=== PATIENT | male | born 1985 | race American Indian/Alaskan Native ===

== ENCOUNTER 2017-10-02 14:06 | Outpatient (CLI) | payer OTHER ==
[2017-10-02 14:42] LABS: Alanine Aminotransferase 26 units/L (7-56); Albumin 4.3 g/dL (3.9-5)
[2017-10-02 14:49] LABS: Bilirubin,Direct < 0.2 mg/dL (0-0.2)
== END 2017-10-02 14:07 | disposition home or self-care (01) ==
LOC: LAB 14:06
PROVIDERS: ATTEND Internal Medicine
DX: N18.9 Chronic kidney disease, unspecified (principal)
CPT/HCPCS: 36415; 80074

== ENCOUNTER 2019-05-29 07:15 | Emergency (ER) | payer OTHER ==
[2019-05-29 07:21] VITALS: BP 129/81
--- NOTE | 2019-05-29 08:05 | Emergency Department Report ---
- General Chief Complaint: Upper Respiratory Infection Stated Complaint: FLU SX Time Seen by Provider: 05/29/19 07:50 Source: patient Mode of arrival: Ambulatory Limitations: No Limitations - History of Present Illness Initial Comments: 34-year-old male with no significant past medical history presents to the ER today complaining of cold symptoms. Patient states any symptoms has been going on for 2 days. He reports rhinorrhea, nasal congestion, sore throat generalized muscle aches, chills, and a nonproductive cough and chest congestion. Patient reports exposure to sick contact (his fiance). He states that he has been taking [id number] TheraFlu, NyQuil and tylenol extra strength without much relief of symptoms. He denies fever, GI or symptoms or any other symptoms at this time. MD Complaint: cough, sore throat, rhinorrhea, nasal congestion, sinus pain -: days(s) (2) - Related Data Previous Rx's Medication Instructions Recorded Last Taken Type ALBUTEROL Inhaler (OR & NICU) 2 puff IH QID PRN #8.5 gram 05/29/19 Unknown Rx [ProAir HFA Inhaler] Benzonatate [Tessalon Perles] 100 mg PO Q8HR PRN #30 capsule 05/29/19 Unknown Rx Fexofenadine HCl [Dafne Allergy] 180 mg PO DAILY #30 tablet 05/29/19 Unknown Rx predniSONE [Deltasone] 50 mg PO QDAY #5 tab 05/29/19 Unknown Rx Allergies Allergy/AdvReac Type Severity Reaction Status Date / Time No Known Allergies Allergy Unverified 05/29/19 07:17 ED Review of Systems ROS: Stated complaint: FLU SX Other details as noted in HPI Comment: All other systems reviewed and negative ENT: throat pain, congestion, other (rhino) Respiratory: cough. denies: shortness of breath, SOB with exertion, SOB at rest, stridor, wheezing Cardiovascular: denies: chest pain Gastrointestinal: denies: abdominal pain, nausea, vomiting, diarrhea Genitourinary: denies: dysuria, frequency Musculoskeletal: myalgia, other (posterior neck pain) Neurological: denies: headache, vertigo ED Past Medical Hx - Past Medical History Previous Medical History?: No - Surgical History Past Surgical History?: No - Social History Smoking Status: Never Smoker - Medications Home Medications: Home Medications Medication Instructions Recorded Confirmed Last Taken Type ALBUTEROL Inhaler (OR & NICU) 2 puff IH QID PRN #8.5 gram 05/29/19 Unknown Rx [ProAir HFA Inhaler] Benzonatate [Tessalon Perles] 100 mg PO Q8HR PRN #30 capsule 05/29/19 Unknown Rx Fexofenadine HCl [Dafne Allergy] 180 mg PO DAILY #30 tablet 05/29/19 Unknown Rx predniSONE [Deltasone] 50 mg PO QDAY #5 tab 05/29/19 Unknown Rx ED Physical Exam - General Limitations: No Limitations General appearance: alert, in no apparent distress - Head Head exam: Present: atraumatic, normocephalic, normal inspection - Eye Eye exam: Present: normal appearance, PERRL, EOMI - ENT ENT exam: Present: mucous membranes moist, other (+sinus tenderness maxillary ) - Expanded ENT Exam Expanded TM/Canal exam: Effusion: Right TM, Left TM Mouth exam: Present: normal external inspection Throat exam: Positive: tonsillar erythema, tonsillomegaly (mild). Negative: tonsillar exudate - Neck Neck exam: Present: full ROM. Absent: normal inspection, tenderness, meningismus - Respiratory Respiratory exam: Present: wheezes (right upper lung field, mild) - Cardiovascular Cardiovascular Exam: Present: regular rate, normal rhythm, normal heart sounds - GI/Abdominal GI/Abdominal exam: Present: soft. Absent: tenderness - Neurological Exam Neurological exam: Present: alert, oriented X3, CN II-XII intact - Skin Skin exam: Present: intact ED Course Vital Signs 05/29/19 07:19 Temperature 98.7 F Pulse Rate 100 H Respiratory 18 Rate Blood Pressure 129/81 O2 Sat by Pulse 98 Oximetry ED Medical Decision Making - Radiology Data Radiology results: report reviewed - Medical Decision Making Patient is resting comfortably, he is alert and in no distress. He has normal mental status and is neurologically intact. He is not toxic or ill appearing. No significant signs of dehydration. There is no respiratory distress or signs of system toxicity. The history and exam and current condition do not demonstrate an infectious process such as meningitis, severe pneumonia, retropharyngeal abscess, epiglottis, sepsis or any other serious bacterial infection requiring further testing, treatment, consultation, or admission at this time. The VS are stable and the patient is stable and appropriate for discharge. Critical care attestation.: If time is entered above; I have spent that time in minutes in the direct care of this critically ill patient, excluding procedure time. ED Disposition Clinical Impression: Upper respiratory infection, Bronchitis Disposition: TO HOME OR SELFCARE Is pt being admited?: No Does the pt Need Aspirin: No Condition: Stable Instructions: Upper Respiratory Infection (ED), Acute Bronchitis (ED), Chronic Bronchitis (ED) Prescriptions: Fexofenadine HCl [Dafne Allergy] 180 mg PO DAILY #30 tablet predniSONE [Deltasone] 50 mg PO QDAY #5 tab ALBUTEROL Inhaler (OR & NICU) [ProAir HFA Inhaler] 2 puff IH QID PRN #8.5 gram PRN Reason: Wheezing Benzonatate [Tessalon Perles] 100 mg PO Q8HR PRN #30 capsule PRN Reason: Cough [facility]errals: [facility] [Primary Care Provider] - 3-5 Days ANGEAL HUDSON MD [Staff Physician] - 3-5 Days Forms: Work/School Release Form(ED) Time of Disposition: 09:38
--- NOTE | 2019-05-29 09:03 | XRay Report ---
CHEST 2 VIEWS INDICATION / CLINICAL INFORMATION: Cough/wheezing. COMPARISON: None available. FINDINGS: SUPPORT DEVICES: None. HEART / MEDIASTINUM: No significant abnormality. LUNGS / PLEURA: No significant pulmonary or pleural abnormality. No pneumothorax. ADDITIONAL FINDINGS: No significant additional findings. IMPRESSION: No significant abnormality Signer Name: Jonh Reyna MD FACR Signed: 05/29/2019 8:59 AM Workstation Name: [id number]
== END 2019-05-29 10:03 | disposition home or self-care (01) ==
LOC: ED 07:15
DX: J40 Bronchitis, not specified as acute or chronic (principal); J06.9 Acute upper respiratory infection, unspecified; Z79.899 Other long term (current) drug therapy
CPT/HCPCS: 71046